=== PATIENT | male | born 2000 | race Caucasian/White ===

== ENCOUNTER 2025-01-05 08:22 | Emergency (ER) | payer MEDICAID ==
[~2025-01-05] VITALS: Ht 180.3 cm; Wt 107.0 kg
[2025-01-05 08:33] VITALS: O2SAT 99
[2025-01-05 10:27] LABS: BASOPHILS % 0.3 % (0.0-2.0); EOSINOPHILS % 0.3 % (0.0-5.0); HEMATOCRIT. 45.8 % (42.0-52.0); HEMOGLOBIN. 15.8 g/dL (14.0-18.0); LYMPHOCYTES % 14.2 % (20.0-50.0); MEAN PLATELET VOLUME 8.9 fl (7.4-10.4); MONOCYTES % 4.1 % (2.0-8.0); NEUTROPHILS % 81.1 % (40.0-76.0); PLATELET 258 x1000/uL (130-400); RED BLOOD CELL COUNT 5.13 mill/uL (4.7-6.1); RED CELL DISTRIBUTION WIDTH 12.6 % (11.6-14.6)
[2025-01-05] MEDS: MAGNESIUM/ALUMINUM HYDROXIDE/SIMETHICONE 30ML UDC PO ONE (10:35)
[2025-01-05] MEDS: ONDANSETRON 4MG ODT PO ONE (10:35)
[2025-01-05] MEDS: FAMOTIDINE 20MG TABLET PO ONE (10:35)
[2025-01-05] MEDS: SUCRALFATE 1G TABLET PO SCH (10:38)
[2025-01-05 10:49] LABS: CREATININE 0.8 mg/dL (0.6-1.3); UREA NITROGEN BLOOD 7 mg/dL (9-23)
[2025-01-05 10:51] LABS: ASPARTATE AMINOTRANSFERASE 35 IU/L (<34); BILIRUBIN DIRECT 0.2 mg/dL (<=3.0); BILIRUBIN TOTAL 0.5 mg/dL (0.1-1.0); PROTEIN TOTAL 7.4 g/dL (6.0-8.3)
[2025-01-05] MEDS ORDERED: ONDA-239 PO (11:20)
[2025-01-05] MEDS ORDERED: FAMO-134 MT (11:20)
[2025-01-05 11:39] VITALS: BP 130/68; PULSE 72; RESP 16; TEMP 37.2; O2SAT 98
[2025-01-05 12:01] LABS: CLARITY URINE CLEAR (CLEAR); COLOR URINE YELLOW (YELLOW); GLUCOSE URINE NEGATIVE (NEGATIVE); KETONES URINE NEGATIVE (NEGATIVE); LEUKOCYTE ESTERASE URINE NEGATIVE (NEGATIVE); NITRITE URINE NEGATIVE (NEGATIVE); OCCULT BLOOD URINE NEGATIVE (NEGATIVE); PH URINE 8.0 (4.5-8.0); PROTEIN URINE NEGATIVE (NEGATIVE); SPECIFIC GRAVITY URINE 1.017 (1.005-1.030); UROBILINOGEN URINE 0.2 E.U./dL (0.2-1.0)
== END 2025-01-05 11:45 | disposition home or self-care (01) ==
LOC: ER 08:22
DX: R10.13 Epigastric pain (principal); R11.2 Nausea with vomiting, unspecified
CPT/HCPCS: 99284; 76705; 80076; 80048; 81003; 83690; 85025; 36415; Q0162